=== PATIENT | female | born 1965 | race Caucasian/White ===

== ENCOUNTER 2017-11-12 14:59 | Inpatient (IN) | payer MEDICAID ==
[~2017-11-12] VITALS: Ht 167.6 cm; Wt 68.0 kg
--- NOTE | 2017-11-12 15:10 | NUR ---
PT IS RESTING IN BED UNDER DIRECT OBSERVANION OF ALLEN CABALLERO. NO S/S OF ACUTE DISTRESS AT THIS TIME. CONTINUE TO MONITOR THE PT.
[2017-11-12] MEDS ORDERED: DIAZ10TA PO (15:12)
[2017-11-12] MEDS ORDERED: AMOX500C2 PO (15:12)
[2017-11-12] MEDS ORDERED: ALBU18HF2 IH (15:12)
[2017-11-12] MEDS ORDERED: SIME80TA PO (15:12)
[2017-11-12] MEDS ORDERED: IBUP-1955 PO (15:12)
[2017-11-12] MEDS ORDERED: CLIN150C2 PO (15:12)
[2017-11-12] MEDS ORDERED: HYDR-3326 PO (15:12)
[2017-11-12] MEDS ORDERED: HYDR-548 PO (15:12)
[2017-11-12] MEDS ORDERED: ONDANSETRON 4 MG/2 ML VIAL IV ONE (15:15)
[2017-11-12] MEDS ORDERED: CHARCOAL/SORBITOL SOLUTION 50 GM/240 ML BOTTLE PO ONE (15:15)
--- NOTE | 2017-11-12 15:17 | NUR ---
PT IS IN ROOM #1a. dr Gill evaluated the pt.
[2017-11-12] MEDS ORDERED: ONDANSETRON 4 MG/2 ML VIAL ONE (15:36)
[2017-11-12] MEDS ORDERED: CHARCOAL/SORBITOL SOLUTION 50 GM/240 ML BOTTLE ONE (15:37)
[2017-11-12 15:56] LABS: BASOPHILS # (AUTO) 0.1 K/uL (0.0-8.0); BASOPHILS % (AUTO) 0.8 % (0.0-2.0); EOSINOPHILS % (AUTO) 0.7 % (0.0-7.0); HEMATOCRIT 39.9 % (31.2-41.9); HEMOGLOBIN 13.6 g/dL (10.9-14.3); LYMPHOCYTES # (AUTO) 2.1 K/uL (20.0-40.0); LYMPHOCYTES % (AUTO) 30.3 % (20.5-51.5); MEAN CORPUSCULAR HEMOGLOBIN 29.5 uug (24.7-32.8); MEAN CORPUSCULAR HGB CONC 34 g/dL (32.3-35.6); MEAN CORPUSCULAR VOLUME 86.7 fL (75.5-95.3); MONOCYTES # (AUTO) 0.4 K/uL (2.0-10.0); MONOCYTES % (AUTO) 5.9 % (0.0-11.0); NEUTROPHILS # (AUTO) 4.3 K/uL (1.8-8.9); NEUTROPHILS % (AUTO) 62.3 % (38.5-71.5); PLATELET COUNT (AUTO) 200 K/uL (179-408); RED BLOOD CELL COUNT(AUTO) 4.61 MIL/uL (3.63-4.92); WHITE BLOOD COUNT (AUTO) 6.9 K/uL (3.8-11.8)
[2017-11-12 16:03] LABS: CARBON DIOXIDE 25 mmol/L (21-32); CHLORIDE 105 mmol/L (98-107); GLUCOSE 96 mg/dL (74-106); POTASSIUM 3.3 mmol/L (3.5-5.1); UREA NITROGEN, BLOOD 8 mg/dL (7-18)
[2017-11-12 16:12] LABS: ETHANOL < 3 MG/DL (0-0)
[2017-11-12 16:16] LABS: *AMPHETAMINE, URINE POSITIVE (NEGATIVE); *BARBITURATE, URINE NEGATIVE (NEGATIVE); *CANNABINOID, URINE NEGATIVE (NEGATIVE); *COCCAINE, URINE POSITIVE (NEGATIVE); *OPIATE, URINE NEGATIVE (NEGATIVE); *PHENCYCLIDINE SCREEN,URINE NEGATIVE (NEGATIVE)
[2017-11-12 16:20] LABS: ALANINE AMINOTRANSFERASE 25 U/L (14-59); ALKALINE PHOSPHATASE 72 U/L (50-136); ASPARTATE AMINOTRANSFERASE 24 U/L (15-37); BILIRUBIN,DIRECT 0.1 mg/dL (0.0-0.2); BILIRUBIN,TOTAL 0.3 mg/dL (0.2-1.0); TOTAL PROTEIN, SERUM 6.9 g/dL (6.4-8.2)
[2017-11-12 16:21] LABS: ACETAMINOPHEN < 2.0 ug/mL (10-30)
[2017-11-12 18:23] LABS: ACETAMINOPHEN < 2.0 ug/mL (10-30)
[2017-11-12] MEDS ORDERED: Z GUARD REMEDY PASTE 57 GM TUBE TOP PRN (18:45)
[2017-11-12] MEDS ORDERED: ONDANSETRON 4 MG/2 ML VIAL IV PRN (18:45)
[2017-11-12] MEDS ORDERED: MAGNESIUM HYDROXIDE 30 ML LIQUID UDC PO PRN (18:45)
--- NOTE | 2017-11-12 18:59 | NUR ---
REPORT GIVEN TO SALESPERSON SURGICAL APPLIANCESRENAL CASE MANAGER,
--- NOTE | 2017-11-12 19:16 | NUR ---
REPORT TAKEN FROM SUSIE ORTEZ.
--- NOTE | 2017-11-12 19:49 | NUR ---
REPORT GIVEN TO SUSIE BRANDT.
[2017-11-12] MEDS ORDERED: ALBUTEROL SULFATE 8 GM HFA.AER.AD IH SCH (20:30)
[2017-11-12 20:40] VITALS: BP 149/89
--- NOTE | 2017-11-12 20:40 | NUR ---
[facility]/ [facility] OF [facility]UG OVERDOSE W/ SUICIDAL IDEATION. VERY DROWSY, AROUSABLE TO PAINFUL STIMULI. IV SITE ON RAC INTACT & PATENT. NGT ON R NARE INTACT & CLAMPED. ATTACHED TO TELEMETRY MONITORING, SR NO ECTOPY. AFEBRILE, BP STABLE. ON RM AIR W/ O2 SAT OF 100%. SITTER @ BEDSIDE AT ALL TIMES.
--- NOTE | 2017-11-12 20:43 | NUR ---
Pt. admitted to [facility], under care of Dr. SMALL Belongs List completed
[2017-11-12 20:44] VITALS: BP 149/89
[2017-11-12] MEDS ORDERED: ALBUTEROL SULFATE 2.5 MG/3 ML NEBU NEB PRN (20:45)
[2017-11-12] MEDS: IV NS 1000 ML 1,000 ML IV PRN (21:25)
--- NOTE | 2017-11-12 23:25 | NUR ---
PT. IS AWAKE ASKING FOR WATER, GIVEN SLOWLY W/ HOB ELEVATED.PT. IS INCONT. OF BLACKISH STOOL CLEANED & KEPT DRY. ALSO IS INCONT. OF URINE, REMAINS SLEEPY.
[2017-11-13] VITALS (9 sets, daily range): BP systolic 110–137; BP diastolic 65–79
--- NOTE | 2017-11-13 04:00 | NUR ---
AWAKE & WANTS THE NGT TO BE REMOVED.
--- NOTE | 2017-11-13 05:00 | NUR ---
REMOVED NGT, PT C/O PAIN WHEN SWALLOWING. LESS DROWSY TAKING FLUIDS WELL. NOT IN ANY DISTRESS. IV INFUSING WELL.
[2017-11-13] MEDS: IV NS 1000 ML 1,000 ML IV PRN ×2 (05:53→16:12)
[2017-11-13 06:41] LABS: CREATININE 0.9 mg/dL (0.6-1.3); PHOSPHOROUS 2.6 mg/dL (2.5-4.9); POTASSIUM 3.3 mmol/L (3.5-5.1)
[2017-11-13 07:00] LABS: BASOPHILS # (AUTO) 0.1 K/uL (0.0-8.0); BASOPHILS % (AUTO) 1.1 % (0.0-2.0); EOSINOPHILS # (AUTO) 0.1 K/uL (0.0-0.7); EOSINOPHILS % (AUTO) 1.1 % (0.0-7.0); LYMPHOCYTES # (AUTO) 2.2 K/uL (20.0-40.0); LYMPHOCYTES % (AUTO) 40.3 % (20.5-51.5); MEAN CORPUSCULAR HEMOGLOBIN 29.2 uug (24.7-32.8); MEAN CORPUSCULAR HGB CONC 34 g/dL (32.3-35.6); MEAN CORPUSCULAR VOLUME 86.5 fL (75.5-95.3); MONOCYTES # (AUTO) 0.3 K/uL (2.0-10.0); NEUTROPHILS # (AUTO) 2.8 K/uL (1.8-8.9); NEUTROPHILS % (AUTO) 51.5 % (38.5-71.5); PLATELET COUNT (AUTO) 179 K/uL (179-408); RED BLOOD CELL COUNT(AUTO) 3.99 MIL/uL (3.63-4.92); WHITE BLOOD COUNT (AUTO) 5.5 K/uL (3.8-11.8)
[2017-11-13 07:02] LABS: HEMOGLOBIN 11.7 g/dL (10.9-14.3)
[2017-11-13 07:03] LABS: HEMATOCRIT 34.5 % (31.2-41.9)
--- NOTE | 2017-11-13 08:00 | NUR ---
At this time patient stating that she goes to [facility] located in [place], and she's on a daily dose of 23mg of methadone. Upon googling the clinic a phone obtained and our pharmacist Leeroy notified. Leeroy Marks called the clinic and she was informed that the clinic closes at 0900 and if any information needed it should be obtained before the mentioned time. Attempts to obtain consent for release of information from patient, but she refused to consent.
[2017-11-13] MEDS ORDERED: POTASSIUM CHLORIDE 20 MEQ TAB.PRT.SR PO ONE (14:30)
[2017-11-13] MEDS ORDERED: TIZANIDINE HCL 4 MG TABLET PO PRN (17:15)
[2017-11-13] MEDS ORDERED: METHADONE HCL 10 MG TABLET PO ONE (17:45)
[2017-11-13] MEDS: GABAPENTIN 300 MG CAPSULE PO SCH (17:51)
[2017-11-13] MEDS: CLONIDINE HCL 0.1 MG TABLET PO SCH ×2 (17:52→21:59)
--- NOTE | 2017-11-13 18:15 | NUR ---
At this time IV line leaking but not infiltrated. Patient refusing to get another IV line started. . notified.
--- NOTE | 2017-11-13 20:00 | NUR ---
RECEIVED PT.AWAKE, ALERT & ORIENTED X3, VERY COHERENT. ON RM AIR W/ O2 SAT SAT OF 99%. HEP ON RAC INTACT & PATENT. C-SCOPE SR NO ECTOPY. NOT IN ANY DISTRESS. SITTER AT BEDSIDE AT ALL TIMES.
--- NOTE | 2017-11-13 20:05 | NUR ---
PT. REFUSED IVF, TAKING FLUIDS WELL.
--- NOTE | 2017-11-13 21:00 | NUR ---
PT. & HER MOTHER WANTS TO TALK TO CASE MANAGEMENT RE: REHAB PROGRAM.
--- NOTE | 2017-11-13 22:25 | NUR ---
DR. Christoph DALE CAME IN & TALKED TO PT W/ ORDER.
[2017-11-13] MEDS: TRAZODONE 100 MG TABLET PO SCH (23:05)
[2017-11-14] VITALS (7 sets, daily range): BP systolic 91–135; BP diastolic 54–68
--- NOTE | 2017-11-14 | NUR ---
SLEEPING AT THIS TIME. SITTER @ BEDSIDE AT ALL TIMES. NOT IN ANY DISTRESS.
[2017-11-14] MEDS: CLONIDINE HCL 0.1 MG TABLET PO SCH ×3 (05:47→21:20)
--- NOTE | 2017-11-14 06:00 | NUR ---
REMAINS SLEEPING. NOT IN ANY DISTRESS. HOLD CATAPRES, BP-91/54.
[2017-11-14 06:48] LABS: CREATININE 0.9 mg/dL (0.6-1.3); POTASSIUM 3.5 mmol/L (3.5-5.1)
--- NOTE | 2017-11-14 08:00 | NUR ---
FAXED REHAB FACILITY RELEASE OF INFORMATION TO OBTAIN ACCURATE DOSAGE OF MEDICATION SHE IS TAKING IN THE FACILITY. SPOKE TO KWASI AT THE FACILITY COPY OF PAGES SENT AND RECEIVED ARE IN CHART.
[2017-11-14] MEDS: GABAPENTIN 300 MG CAPSULE PO SCH ×3 (08:35→18:40)
--- NOTE | 2017-11-14 12:00 | NUR ---
KOLBY MASCORRO SPOKE TO PATIENT AT BEDSIDE. RESUMED MEDICATION FROM FACILITY. GIVEN FIRST DOSE AT UPON VERIFICATION OF MEDS.
[2017-11-14] MEDS ORDERED: METHADONE HCL 10 MG TABLET PO SCH ×2 (12:30→13:00)
--- NOTE | 2017-11-14 13:45 | NUR ---
SON CAME TO VISIT PATIENT.
--- NOTE | 2017-11-14 13:59 | NUR ---
PATIENTS PARENTS IN THE UNIT AT THIS TIME TO VISIT.
[2017-11-14] MEDS ORDERED: LORAZEPAM 1 MG TABLET PO ONE (18:45)
--- NOTE | 2017-11-14 20:54 | NUR ---
Call from [facility], accepting patient to [facility] under Dr. Schultz. Call to Dr. Davidson to finalize discharge.
[2017-11-14] MEDS: TRAZODONE 100 MG TABLET PO SCH (21:20)
[2017-11-14] MEDS ORDERED: METH10TA PO (21:39)
[2017-11-14] MEDS ORDERED: TRAZ-147 PO (21:39)
[2017-11-14] MEDS ORDERED: GABA-534 PO (21:39)
[2017-11-14] MEDS ORDERED: TIZA4TAB4 PO (21:39)
--- NOTE | 2017-11-14 22:00 | NUR ---
Telephone report given to SUSIE Adhikari from [facility] psych unit.
--- NOTE | 2017-11-14 22:18 | NUR ---
Returned patient's belongings from safe and own medications from pharmacy. Receipts signed and placed in chart. Belongings list completed as well
--- NOTE | 2017-11-14 22:45 | NUR ---
EMT at bedside for transport to [facility] Psych unit [facility] 11A. Report given to EMT. Patient is stable and in no acute distress. Left facility at [id number].
[2017-11-15] MEDS ORDERED: ETHINYL ESTRADIOL PO SCH (09:00)
[2017-11-15] MEDS ORDERED: NORETHINDRONE PO SCH (09:00)
[2017-11-15] MEDS ORDERED: METHADONE HCL 10 MG TABLET PO SCH (09:00)
== END 2017-11-14 22:45 | DRG 812 ==
LOC: ER 14:59 → DOU 20:25 → TELE-TD 21:00
PROVIDERS: ADMIT Psychiatry & Neurology Psychiatry; ATTEND Internal Medicine
PROC: 0D9670Z Drainage of Stomach with Drainage Device, Via Natural or Artificial Opening (ICD-10-PCS; principal; 2017-11-12)
DX: T42.4X2A Poisoning by benzodiazepines, intentional self-harm, initial encounter (principal); G92 Toxic encephalopathy; T43.592A Poisoning by other antipsychotics and neuroleptics, intentional self-harm, initial encounter; Y92.59 Other trade areas as the place of occurrence of the external cause; F11.20 Opioid dependence, uncomplicated; F19.10 Other psychoactive substance abuse, uncomplicated; Z59.9 Problem related to housing and economic circumstances, unspecified; F32.1 Major depressive disorder, single episode, moderate; E87.6 Hypokalemia; F41.9 Anxiety disorder, unspecified
CPT/HCPCS: 36415; 70030-TC; 70450; 71045; 72125; 80307; 83735; 84100; 84703; 85025; 85730; 93005; A4663; G0480; G0480-TC; J2405; J7030